=== PATIENT | female | born 1975 | race Caucasian/White ===

== ENCOUNTER 2023-03-01 17:45 | Inpatient (IN) | payer OTHER ==
[2023-03-01] MEDS ORDERED: Acetaminophen 500 MG TAB ONE (18:34)
[2023-03-01] MEDS ORDERED: Cefepime 2 GM VIAL ONE (19:12)
[2023-03-01] MEDS ORDERED: Sodium Chloride 0.9% 100 ML ONE (19:12)
[2023-03-01] MEDS ORDERED: Vancomycin 1 GM/200 ML (FROZEN) BAG ONE (19:12)
[2023-03-01] MEDS ORDERED: Calcium Carbonate 500 MG ChewTAB PO PRN (19:35)
[2023-03-01 19:48] LABS: Troponin I 0.021 ng/mL (< 0.028)
[2023-03-01 19:55] LABS: #Eosinphils 0.1 thou/uL (0.0-0.7); #Monocytes 0.8 thou/uL (0.11-0.59); #Neutrophils 8.5 thou/uL (1.40-6.50); %Basophils 0.3 % (0.0-1.0); %Eosinophils 0.6 % (0.0-10.0); %Lymphocytes 15.5 % (21.0-51.0); %Monocytes 7.1 % (0.0-10.0); %Neutrophils 76.1 % (42.0-75.0); Hematocrit 43.3 % (36.0-47.0); Hemoglobin 14.3 g/dL (12.0-16.0); Mean Corpuscular Hemoglobin 29.1 pg (27.0-31.0); Mean Corpuscular Volume 88.2 fl (78.0-98.0); Mean Platelet Volume 10.3 fL (7.4-10.4); Platelet Count 233 10x3/uL (130-400); RBC Distribution Width 12.3 % (11.5-14.5); Red Blood Cell (RBC) Count 4.91 mill/uL (4.20-5.40); White Blood Cell (WBC) Count 11.2 10x3/uL (4.8-10.8)
[2023-03-01 20:22] LABS: ALT (SGPT) 11 U/L (8-55); AST (SGOT) 16 U/L (5-34); Albumin 3.7 g/dL (3.5-5.0); Alkaline Phosphatase 77 U/L (40-110); Anion Gap 12 mmol/L (10-20); BUN (Urea Nitrogen) 9 mg/dL (7.0-18.7); Bilirubin, Total 0.7 mg/dL (0.2-1.2); Calc. Creatinine Clearance 0 mL/min (70-130); Calcium 8.4 mg/dL (7.8-10.44); Carbon Dioxide 21 mmol/L (22-29); Chloride 112 mmol/L (98-107); Estimated GFR 98; Globulin 2.7 g/dL (2.4-3.5); Glucose 98 mg/dL (70-105); Potassium 3.7 mmol/L (3.5-5.1); Protein, Total 6.4 g/dL (6.0-8.3); Sodium 141 mmol/L (136-145)
[2023-03-01] MEDS ORDERED: Ketorolac Tromethamine 30 MG/ML VIAL ONE (20:38)
[2023-03-01] MEDS ORDERED: Ketorolac Tromethamine 30 MG/ML VIAL IVP SCH (20:45)
[2023-03-01 21:48] VITALS: BMI 32.0
[2023-03-01] MEDS: Famotidine 20 MG TAB PO SCH (22:17)
[2023-03-01] MEDS ORDERED: Electrolyte Replacement Protocol 1 EACH FS PRN (23:02)
[2023-03-01 23:22] LABS: Troponin I 0.025 ng/mL (< 0.028)
[2023-03-02] MEDS: Ondansetron ODT 4 MG TAB PO PRN (00:16)
[2023-03-02 02:01] LABS: Troponin I 0.029 ng/mL (< 0.028)
[2023-03-02 04:16] LABS: #Eosinphils 0.1 thou/uL (0.0-0.7); #Monocytes 0.6 thou/uL (0.11-0.59); #Neutrophils 3.5 thou/uL (1.40-6.50); %Basophils 0.3 % (0.0-1.0); %Eosinophils 1.4 % (0.0-10.0); %Lymphocytes 26.6 % (21.0-51.0); %Monocytes 10.4 % (0.0-10.0); Hematocrit 42.2 % (36.0-47.0); Hemoglobin 13.6 g/dL (12.0-16.0); Mean Corpuscular HGB CONC 32.2 g/dL (32.0-36.0); Mean Corpuscular Hemoglobin 28.8 pg (27.0-31.0); Mean Corpuscular Volume 89.4 fl (78.0-98.0); Mean Platelet Volume 10.9 fL (7.4-10.4); Platelet Count 250 10x3/uL (130-400); RBC Distribution Width 12.3 % (11.5-14.5); Red Blood Cell (RBC) Count 4.72 mill/uL (4.20-5.40); White Blood Cell (WBC) Count 5.8 10x3/uL (4.8-10.8)
[2023-03-02] MEDS: Ketorolac Tromethamine 30 MG/ML VIAL IVP PRN ×2 (04:17→09:38)
[2023-03-02] MEDS: DOPamine 400 MG/D5W 250 ML 250 ML IVPB SCH ×2 (04:34→19:43)
[2023-03-02 04:47] LABS: Anion Gap 14 mmol/L (10-20); BUN (Urea Nitrogen) 9 mg/dL (7.0-18.7); Calc. Creatinine Clearance 119 mL/min (70-130); Calcium 8.6 mg/dL (7.8-10.44); Carbon Dioxide 22 mmol/L (22-29); Chloride 108 mmol/L (98-107); Estimated GFR 93; Glucose 104 mg/dL (70-105); Magnesium 1.7 mg/dL (1.6-2.6); Potassium 3.5 mmol/L (3.5-5.1); Sodium 140 mmol/L (136-145)
[2023-03-02] MEDS ORDERED: Potassium Chloride 20 MEQ TAB PO SCH (08:00)
[2023-03-02] MEDS ORDERED: Magnesium 2 GM/50 ML(in water) 2 GM in Premix 1 BAG IVPB SCH (08:00)
[2023-03-02] MEDS: Acetaminophen 325 MG TAB PO PRN ×3 (09:37→22:24)
[2023-03-02] MEDS: Famotidine 20 MG TAB PO SCH (09:39)
[2023-03-02] MEDS ORDERED: Ketorolac Tromethamine 30 MG/ML VIAL IVP SCH (10:45)
[2023-03-02] MEDS: Cyclobenzaprine 10 MG TAB PO PRN ×2 (12:58→19:43)
[2023-03-03 02:45] VITALS: BP 109/58
[2023-03-03 03:57] LABS: Hematocrit 43.4 % (36.0-47.0); Hemoglobin 14.2 g/dL (12.0-16.0); Mean Corpuscular HGB CONC 32.7 g/dL (32.0-36.0); Mean Corpuscular Hemoglobin 28.6 pg (27.0-31.0); Mean Corpuscular Volume 87.5 fl (78.0-98.0); Mean Platelet Volume 10.3 fL (7.4-10.4); Platelet Count 236 10x3/uL (130-400); RBC Distribution Width 12.3 % (11.5-14.5); Red Blood Cell (RBC) Count 4.96 mill/uL (4.20-5.40); White Blood Cell (WBC) Count 6.2 10x3/uL (4.8-10.8)
[2023-03-03] MEDS: Cyclobenzaprine 10 MG TAB PO PRN ×2 (05:43→20:59)
[2023-03-03] MEDS: Acetaminophen 325 MG TAB PO PRN ×2 (05:43→16:12)
[2023-03-03] MEDS: DOPamine 400 MG/D5W 250 ML 250 ML IVPB SCH (09:42)
[2023-03-03] MEDS ORDERED: Ketorolac Tromethamine 30 MG/ML VIAL ONE (12:02)
[2023-03-03] MEDS: Ketorolac Tromethamine 30 MG/ML VIAL IVP SCH ×3 (12:06→23:25)
[2023-03-03] MEDS: Ondansetron ODT 4 MG TAB PO PRN ×2 (12:41→20:59)
[2023-03-03 12:49] LABS: Troponin I 0.012 ng/mL (< 0.028)
[2023-03-03] MEDS: Nicotine 14 MG PATCH TD SCH ×3 (18:07→20:59)
[2023-03-04] MEDS: Acetaminophen 325 MG TAB PO PRN (03:57)
[2023-03-04] MEDS: Ketorolac Tromethamine 30 MG/ML VIAL IVP SCH ×3 (05:01→17:38)
[2023-03-04] MEDS: Ondansetron ODT 4 MG TAB PO PRN (05:02)
[2023-03-04] MEDS ORDERED: FLU VACC QS2023-24(6MOS UP)/PF 60 MCG/0.5 ML SYRINGE IM ONE (09:00)
[2023-03-04] MEDS ORDERED: Ketorolac Tromethamine 30 MG/ML VIAL IVP SCH (10:15)
[2023-03-04] MEDS ORDERED: diphenhydrAMINE 25 MG CAP PO SCH (10:15)
[2023-03-04] MEDS ORDERED: Lactated Ringer's 1,000 ML IV SCH (11:00)
[2023-03-04] MEDS ORDERED: Prochlorperazine Edisylate 10 MG in Sodium Chloride 0.9% 50 ML IVPB SCH (11:00)
[2023-03-04 15:10] VITALS: TEMP 97.3
[2023-03-04] MEDS ORDERED: Nicotine 14 MG PATCH TD SCH (17:00)
== END 2023-03-04 18:12 | disposition home or self-care (01) | DRG 206 ==
LOC: ERS 17:45 → IMCU/EMU 20:20
PROVIDERS: ADMIT Student in an Organized Health Care Education/Training Program; ATTEND Internal Medicine
DX: M94.0 Chondrocostal junction syndrome [Tietze] (principal); K92.1 Melena; F41.9 Anxiety disorder, unspecified; F32.A Depression, unspecified; E86.0 Dehydration; R00.1 Bradycardia, unspecified; R50.9 Fever, unspecified; T46.5X5A Adverse effect of other antihypertensive drugs, initial encounter; R51.9 Headache, unspecified; Z88.0 Allergy status to penicillin; Z88.5 Allergy status to narcotic agent; Z91.041 Radiographic dye allergy status; Z71.6 Tobacco abuse counseling; Z79.899 Other long term (current) drug therapy; Z90.49 Acquired absence of other specified parts of digestive tract; Z90.89 Acquired absence of other organs; Z98.890 Other specified postprocedural states; Z82.49 Family history of ischemic heart disease and other diseases of the circulatory system; Z85.038 Personal history of other malignant neoplasm of large intestine
CPT/HCPCS: 36415; 70450; 71045; 80048; 82533; 83735; 83880; 84443; 84484; 85025; 85027; 87040; 93005; 93010; 93306; 96365; 96366; 96367; 96375; J0692; J0780; J1265; J1650; J1885; J3370-JW; J3475; J3490; J7120; Q0162